=== PATIENT | male | born 1965 | race Two or more races ===

== ENCOUNTER → 2022-12-06 | Outpatient (CLI) | payer BC ==
[~2022-12-06] VITALS: Ht 190.5 cm; Wt 142.9 kg
[~2022-12-06] MED LIST: ADENOSINE 120 MG in GIVE UN-DILUTED 0 ML IV STA
== END | disposition home or self-care (01) ==
LOC: XYW 09:06
PROVIDERS: ATTEND Internal Medicine
DX: R07.9 Chest pain, unspecified (principal)
CPT/HCPCS: 78452; 93017; A9500; J0153

== ENCOUNTER 2023-01-11 06:54 | Day surgery (SDC) | payer BC ==
[~2023-01-11] VITALS: Ht 190.5 cm; Wt 140.6 kg
[~2023-01-11 06:54] MED LIST changes: -ADENOSINE 120 MG in GIVE UN-DILUTED 0 ML IV STA; +ALL100T PO; +HYDR25TA5 PO; +LISI30TA8 PO
[2023-01-11] MEDS ORDERED: MIDAZOLAM HCL 2MG/2ML 2ml VIAL (1mg/ml) ONE (08:47)
[2023-01-11] MEDS ORDERED: HEPARIN SODIUM (PORCINE) 5000 UNITS/ML 1ML VIAL ONE (08:47)
[2023-01-11] MEDS ORDERED: fentaNYL CITRATE 100 MCG/2 ML VL ONE (08:47)
[2023-01-11] MEDS ORDERED: VERAPAMIL 2.5MG/ML INJ 2ML VIAL IV ONE (08:47)
[2023-01-11] MEDS ORDERED: ANGIOMAX 250 MG VIAL IV ONE (08:47)
[2023-01-11] MEDS ORDERED: IODIXANOL 320MG/ML 100ML BTL IV ONE ×3 (08:48→09:50)
[2023-01-11] MEDS ORDERED: SODIUM CHL 0.9% 50 ML ONE (08:48)
[2023-01-11] MEDS ORDERED: LIDOCAINE 2%HCL (LOCAL ANESTH.) INJ 20ML MDV ONE (08:48)
[2023-01-11] MEDS ORDERED: TICAGRELOR 90 MG TAB ONE (10:02)
[2023-01-11] MEDS ORDERED: TICA90TA PO (10:22)
== END 2023-01-11 12:53 | disposition home or self-care (01) ==
LOC: CATH 06:54
PROVIDERS: ATTEND Internal Medicine
DX: I25.10 Atherosclerotic heart disease of native coronary artery without angina pectoris (principal); I10 Essential (primary) hypertension; Z98.890 Other specified postprocedural states; Z79.01 Long term (current) use of anticoagulants
CPT/HCPCS: 93458; C1725; C1769; C1874; C1887; C1894; C9600; J0583; J1644; J2250; J3010; Q9967; 99152